=== PATIENT | female | born 1940 | race American Indian/Alaskan Native ===

== ENCOUNTER 2020-03-17 16:16 | Observation (INO) | payer MEDICARE, OTHER ==
--- NOTE | 2020-03-17 17:18 | XRay Report ---
CHEST 1 VIEW INDICATION: Chest Pain. COMPARISON: None FINDINGS: Support devices: None. Heart: Within normal limits. Lungs/Pleura: No acute air space or interstitial disease. Additional findings: None. IMPRESSION: No acute findings. Signer Name: Noel Fernandez Jr, MD Signed: 03/17/2020 5:14 PM Workstation Name: [id number]
--- NOTE | 2020-03-17 17:58 | Emergency Department Report ---
ED Chest Pain HPI - General Chief Complaint: Chest Pain Stated Complaint: CHEST PAIN PUI?: No Time Seen by Provider: 03/17/20 16:36 Source: patient, old records reviewed (No previous medical record for review) Mode of arrival: Stretcher Limitations: No Limitations - History of Present Illness Initial Comments: 79-year-old female presents from [facility] with complaints of chest pain that started around noon. Patient was walking on symptom onset and complains of associated shortness of breath and nausea without diaphoresis or vomiting. Patient took 2 nitroglycerin prior to arrival. Pain resolved about 12 PM. Patient describes pain as a sticking sensation but also states it is a heaviness radiating to her left neck and shoulder. As per medical record from [place] patient was medically cleared at [facility] and admitted to inpatient treatment at [place] on February 18 for acute psychosis. 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 Patient also tells me she has had 2 previous heart attacks 1 in 1977 and the next one in 1997 and thinks she might have cardiac stents but is unsure how many. She denies a history of PE/DVT. Patient cannot recall her last cardiac cath. She states she is supposed to get a stress test in November but it has been delayed due to COVID. 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 and are available for review at this time. As per medical record provided by [facility] facility patient does not have a known drug allergies but patient states that she is allergic to penicillin and has lip and tongue swelling when she takes her medication. This was added to her allergy list here at [facility] Severity scale (0 -10): 5 - Related Data Home Medications Medication Instructions Recorded Confirmed Last Taken Aspirin 81 mg PO DAILY 03/17/20 03/17/20 Unknown Lovastatin [Altoprev] 10 mg PO DAILY 03/17/20 03/17/20 Unknown Metoprolol [Lopressor TAB] 50 mg PO DAILY 03/17/20 03/17/20 Unknown Naproxen Sodium 220mg 220 mg PO PRN 03/17/20 03/17/20 Unknown Nitroglycerin [Nitrostat] 0.4 mg SL DAILY 03/17/20 03/17/20 Unknown Omeprazole 20 mg PO DAILY 03/17/20 03/17/20 Unknown amLODIPine 10 mg PO DAILY 03/17/20 03/17/20 Unknown lisinopriL 40 mg PO DAILY 03/17/20 03/17/20 Unknown Allergies Allergy/AdvReac Type Severity Reaction Status Date / Time Penicillins Allergy Swelling Verified 03/17/20 18:04 Heart Score - HEART Score History: Slightly suspicious EKG: Normal Age: > 65 Risk factors: > 3 risk factors or hx of atherosclerotic disease Troponin: < normal limit HEART Score: 4 ED Review of Systems ROS: Stated complaint: CHEST PAIN Other details as noted in HPI ED Past Medical Hx - Past Medical History Previous Medical History?: Yes Hx Hypertension: Yes Hx Heart Attack/AMI: Yes Hx Psychiatric Treatment: Yes (Bipolar disorder) Additional medical history: cataracts, glaucoma, thyroid tumor - Surgical History Past Surgical History?: Yes Hx Breast Surgery: Yes (tumors) Additional Surgical History: 1/2 of thyroid removed - Social History Smoking Status: Never Smoker Substance Use Type: None - Medications Home Medications: Home Medications Medication Instructions Recorded Confirmed Last Taken Type Aspirin 81 mg PO DAILY 03/17/20 03/17/20 Unknown History Lovastatin [Altoprev] 10 mg PO DAILY 03/17/20 03/17/20 Unknown History Metoprolol [Lopressor TAB] 50 mg PO DAILY 03/17/20 03/17/20 Unknown History Naproxen Sodium 220mg 220 mg PO PRN 03/17/20 03/17/20 Unknown History Nitroglycerin [Nitrostat] 0.4 mg SL DAILY 03/17/20 03/17/20 Unknown History Omeprazole 20 mg PO DAILY 03/17/20 03/17/20 Unknown History amLODIPine 10 mg PO DAILY 03/17/20 03/17/20 Unknown History lisinopriL 40 mg PO DAILY 03/17/20 03/17/20 Unknown History ED Physical Exam - General Limitations: No Limitations - Other Other exam information: General: No acute distress Head: Atraumatic Eyes: normal appearance ENT: Moist mucous membranes Neck: Normal appearance, no midline tenderness Chest: Clear to auscultation bilaterally, anterior sternal and left-sided chest wall tenderness CV: Regular rate and rhythm Abdomen: Soft, normal bowel sounds, nontender, nondistended, no rebound or guarding Back: Normal inspection Extremity: Bilateral lower extremity edema nonpitting, no leg asymmetry or calf tenderness Neuro: Alert O x 3, no facial asymmetry, speech clear, no gross motor sensory deficit Psych: Appropriate behavior Skin: No rash ED Course Vital Signs 03/17/20 03/17/20 03/17/20 16:31 17:00 17:31 Temperature 97.4 F L Pulse Rate 64 71 64 Respiratory 13 12 Rate Blood Pressure 133/53 133/53 109/56 Blood Pressure 139/100 [Left] O2 Sat by Pulse 100 99 98 Oximetry 03/17/20 03/17/20 03/17/20 18:00 18:31 18:46 Temperature Pulse Rate 67 64 68 Respiratory 11 L 13 18 Rate Blood Pressure 109/56 129/57 Blood Pressure 129/57 [Left] O2 Sat by Pulse 99 99 98 Oximetry 03/17/20 03/17/20 19:01 19:31 Temperature Pulse Rate 66 65 Respiratory 15 16 Rate Blood Pressure 111/57 135/45 Blood Pressure [Left] O2 Sat by Pulse 100 99 Oximetry CLARA score - Clara Score Age > 65: (1) Yes Aspirin use within the Past 7 Days: (1) Yes 3 or more CAD Risk Factors: (1) Yes 2 or more Angina events in past 24 hrs: (1) Yes Known CAD with more than 50% Stenosis: (1) Yes Elevated Cardiac Markers: (0) No ST Deviation Greater than 0.5mm: (0) No CLARA Score: 5 ED Medical Decision Making - Lab Data Result diagrams: 03/17/20 17:11 03/17/20 17:11 Lab Results 03/17/20 03/17/20 03/17/20 Range/Units 17:11 17:11 17:11 WBC 7.1 (4.5-11.0) K/mm3 RBC 4.21 (3.65-5.03) M/mm3 Hgb 10.2 (10.1-14.3) gm/dl Hct 31.1 (30.3-42.9) % MCV 74 L (79-97) fl MCH 24 L (28-32) pg MCHC 33 (30-34) % RDW 18.7 H (13.2-15.2) % Plt Count 194 (140-440) K/mm3 Lymph % (Auto) 29.1 (13.4-35.0) % Aiken % (Auto) 9.3 H (0.0-7.3) % Eos % (Auto) 4.6 H (0.0-4.3) % Baso % (Auto) 0.9 (0.0-1.8) % Lymph # 2.1 (1.2-5.4) K/mm3 Aiken # 0.7 (0.0-0.8) K/mm3 Eos # 0.3 (0.0-0.4) K/mm3 Baso # 0.1 (0.0-0.1) K/mm3 Seg Neutrophils % 56.1 (40.0-70.0) % Seg Neutrophils # 4.0 (1.8-7.7) K/mm3 PT 12.7 (12.2-14.9) Sec. INR 0.94 (0.87-1.13) APTT 38.2 H (24.2-36.6) Sec. D-Dimer 279.31 H (0-234) ng/mlDDU Sodium 140 (137-145) mmol/L Potassium 4.2 (3.6-5.0) mmol/L Chloride 101.9 (98-107) mmol/L Carbon Dioxide 28 (22-30) mmol/L Anion Gap 14 mmol/L BUN 27 H (7-17) mg/dL Creatinine 1.5 H (0.6-1.2) mg/dL Estimated GFR 41 ml/min BUN/Creatinine Ratio 18 % Glucose 88 (65-100) mg/dL Calcium 9.3 (8.4-10.2) mg/dL Total Bilirubin < 0.20 (0.1-1.2) mg/dL AST 23 (5-40) units/L ALT 13 (7-56) units/L Alkaline Phosphatase 102 (35-129) units/L Troponin T < 0.010 (0.00-0.029) ng/mL Total Protein 6.8 (6.3-8.2) g/dL Albumin 3.9 (3.9-5) g/dL Albumin/Globulin Ratio 1.3 % Blood Type Antibody Screen 03/17/20 03/17/20 Range/Units 17:19 19:51 WBC (4.5-11.0) K/mm3 RBC (3.65-5.03) M/mm3 Hgb (10.1-14.3) gm/dl Hct (30.3-42.9) % MCV (79-97) fl MCH (28-32) pg MCHC (30-34) % RDW (13.2-15.2) % Plt Count (140-440) K/mm3 Lymph % (Auto) (13.4-35.0) % Aiken % (Auto) (0.0-7.3) % Eos % (Auto) (0.0-4.3) % Baso % (Auto) (0.0-1.8) % Lymph # (1.2-5.4) K/mm3 Aiken # (0.0-0.8) K/mm3 Eos # (0.0-0.4) K/mm3 Baso # (0.0-0.1) K/mm3 Seg Neutrophils % (40.0-70.0) % Seg Neutrophils # (1.8-7.7) K/mm3 PT (12.2-14.9) Sec. INR (0.87-1.13) APTT (24.2-36.6) Sec. D-Dimer (0-234) ng/mlDDU Sodium (137-145) mmol/L Potassium (3.6-5.0) mmol/L Chloride (98-107) mmol/L Carbon Dioxide (22-30) mmol/L Anion Gap mmol/L BUN (7-17) mg/dL Creatinine (0.6-1.2) mg/dL Estimated GFR ml/min BUN/Creatinine Ratio % Glucose (65-100) mg/dL Calcium (8.4-10.2) mg/dL Total Bilirubin (0.1-1.2) mg/dL AST (5-40) units/L ALT (7-56) units/L Alkaline Phosphatase (35-129) units/L Troponin T < 0.010 (0.00-0.029) ng/mL Total Protein (6.3-8.2) g/dL Albumin (3.9-5) g/dL Albumin/Globulin Ratio % Blood Type O POSITIVE Antibody Screen Negative - EKG Data -: EKG Interpreted by Pr EKG shows normal: sinus rhythm, ST-T waves (no stemi) Rate: normal (65) - Radiology Data Radiology results: report reviewed CHEST 1 VIEW INDICATION: Chest Pain. COMPARISON: None FINDINGS: Support devices: None. Heart: Within normal limits. Lungs/Pleura: No acute air space or interstitial disease. Additional findings: None. IMPRESSION: No acute findings. VQ scan low probability for pulmonary embolus - Medical Decision Making Patient presents to the hospital left-sided chest pain and reported history of CAD with stent placement. EKG normal sinus without ischemic findings of patient's Nicotrol x2. Mildly elevated d-dimer noted with an low probability V/Q exam. Patient will be admitted to the hospital service for further work-up and evaluation. Critical Care Time: No Critical care attestation.: If time is entered above; I have spent that time in minutes in the direct care of this critically ill patient, excluding procedure time. ED Disposition Clinical Impression: Chest pain, History of coronary artery disease, Chronic renal insufficiency Disposition: OP ADMIT IP TO THIS HOSP Is pt being admited?: Yes Does the pt Need Aspirin: Yes Condition: Stable Time of Disposition: 21:16 (Dr. MAY)
[2020-03-17 18:02] LABS: Basophils # (Auto) 0.1 K/mm3 (0.0-0.1); Basophils % (Auto) 0.9 % (0.0-1.8); Eosinophils # (Auto) 0.3 K/mm3 (0.0-0.4); Eosinophils % (Auto) 4.6 % (0.0-4.3); Hematocrit 31.1 % (30.3-42.9); Hemoglobin 10.2 gm/dl (10.1-14.3); Lymphocytes # (Auto) 2.1 K/mm3 (1.2-5.4); Lymphocytes % (Auto) 29.1 % (13.4-35.0); Mean Corpuscular HGB Conc 33 % (30-34); Mean Corpuscular Volume 74 fl (79-97); Monocytes # (Auto) 0.7 K/mm3 (0.0-0.8); Monocytes % (Auto) 9.3 % (0.0-7.3); Platelet Count 194 K/mm3 (140-440); Red Blood Count 4.21 M/mm3 (3.65-5.03); Red Cell Distribution Width 18.7 % (13.2-15.2)
[2020-03-17 18:09] LABS: INR 0.94 (0.87-1.13)
[2020-03-17 18:10] LABS: Partial Thromboplastin Time 38.2 Sec. (24.2-36.6)
[2020-03-17 18:32] LABS: Alanine Aminotransferase 13 units/L (7-56); Albumin 3.9 g/dL (3.9-5); BUN/Creatinine Ratio 18; Blood Urea Nitrogen 27 mg/dL (7-17); Calcium 9.3 mg/dL (8.4-10.2); Hemolysis Index 11
--- NOTE | 2020-03-17 20:28 | Nuclear Medicine Report ---
NUCLEAR MEDICINE PERFUSION LUNG SCAN INDICATION / CLINICAL INFORMATION: cp, d-dimer elevation. TECHNIQUE: 5.10 mCi of Tc-99m MAA were given by IV. COMPARISON: Chest radiograph dated 03/17/20. FINDINGS: PERFUSION: No significant perfusion defects. ADDITIONAL FINDINGS: None. IMPRESSION: 1. Low probability for pulmonary embolism. Signer Name: Rigoberto Case MD Signed: 03/17/2020 8:24 PM Workstation Name: [id number]
[2020-03-17] MEDS ORDERED: ASPIRIN 325 MG TAB PO ONE (21:18)
[2020-03-17] MEDS ORDERED: MORPHINE 4 MG/1 ML INJ IV PRN (21:48)
[2020-03-17] MEDS ORDERED: ONDANSETRON 4 MG/2 ML INJ IV PRN (21:51)
[2020-03-17] MEDS ORDERED: ACETAMINOPHEN 325 MG TAB PO PRN (21:52)
[2020-03-17] MEDS ORDERED: NITROGLYCERIN 0.4 MG TAB SUBL SL PRN (21:55)
[2020-03-17] MEDS: HEPARIN 5,000 UNIT/1 ML VIAL SUB-Q SCH (22:12)
[2020-03-17] MEDS ORDERED: ASPIRIN 325 MG TAB ONE (22:12)
[2020-03-17] MEDS ORDERED: HEPARIN 5,000 UNIT/1 ML VIAL ONE (22:13)
[2020-03-18] MEDS ORDERED: NITROGLYCERIN 2% OINT 1 GM TP SCH (06:00)
[2020-03-18 06:36] LABS: Creatine Kinase MB 2.6 ng/mL (0.0-4.0)
[2020-03-18 06:38] LABS: BUN/Creatinine Ratio 18; Blood Urea Nitrogen 23 mg/dL (7-17); Calcium 9.2 mg/dL (8.4-10.2); Hemolysis Index 41
--- NOTE | 2020-03-18 07:54 | History and Physical Report ---
History of Present Illness Date of examination: 03/17/20 Date of admission: 03/17/20 21:18 Chief complaint: Chief complaint is chest pain History of present illness: History of presenting illness, patient is a 79-year-old female who was brought to the emergency room for [facility] because of sharp chest pain that is located in the precordial area, pain radiates to the left side of the neck and left arm and is associated with shortness of breath nausea but no vomiting and no diaphoresis. Pain is not affected by movement or breathing, pain is relieved with pain medication and or nitroglycerin. Past History Past Medical History: CAD, diabetes, GERD, heart failure, hypertension, renal failure Past Surgical History: Other (THYROID SURGERY, CARDIAC STENT, THYROID SURGERY, BREAST SURGERY) Social history: no significant social history Family history: CAD Medications and Allergies Allergies Allergy/AdvReac Type Severity Reaction Status Date / Time Penicillins Allergy Swelling Verified 03/17/20 18:04 Home Medications Medication Instructions Recorded Confirmed Last Taken Type Aspirin 81 mg PO DAILY 03/17/20 03/17/20 Unknown History Lovastatin [Altoprev] 10 mg PO DAILY 03/17/20 03/17/20 Unknown History Metoprolol [Lopressor TAB] 50 mg PO DAILY 03/17/20 03/17/20 Unknown History Naproxen Sodium 220mg 220 mg PO PRN 03/17/20 03/17/20 Unknown History Nitroglycerin [Nitrostat] 0.4 mg SL DAILY 03/17/20 03/17/20 Unknown History Omeprazole 20 mg PO DAILY 03/17/20 03/17/20 Unknown History amLODIPine 10 mg PO DAILY 03/17/20 03/17/20 Unknown History lisinopriL 40 mg PO DAILY 03/17/20 03/17/20 Unknown History Active Meds: Active Medications Acetaminophen (Tylenol) 650 mg PO Q4H PRN PRN Reason: Headache Aspirin (Aspirin) 325 mg PO QDAY [facility] Heparin Sodium (Porcine) (Heparin) 5,000 unit SUB-Q Q12HR [facility] Last Admin: 03/17/20 22:12 Dose: 5,000 unit Documented by: Morphine Sulfate (Morphine) 3 mg IV Q3H PRN PRN Reason: Pain , Severe (7-10) Nitroglycerin (Nitro-Bid 2%) 1 inch TP QIDNTG [facility]; Protocol Last Admin: 03/18/20 06:36 Dose: 1 inch Documented by: Nitroglycerin (Nitrostat) 0.4 mg SL .Q5MIN PRN PRN Reason: Chest Pain Ondansetron HCl (Zofran) 4 mg IV Q8H PRN PRN Reason: Nausea And Vomiting Review of Systems Constitutional: weakness, no weight loss, no fever, no chills, no sweats, no fatigue, no malaise Eyes: bilateral: other (NO BILATERAL EYE SYMPTOM) Ears, nose, mouth and throat: no ear pain, no ear discharge, no tinnitis, no decreased hearing, no nose pain, no nasal congestion, no nasal discharge, no sinus pressure, no dental pain, no mouth pain, no dysphagia, no hoarseness, no sore throat, no headache, no vertigo Breasts: deferred Cardiovascular: chest pain, shortness of breath, high blood pressure, no palpitations, no rapid/irregular heart beat, no syncope, no lightheadedness, no claudication Respiratory: shortness of breath, no cough, no congestion, no wheezing Gastrointestinal: nausea, no abdominal pain, no vomiting, no diarrhea, no constipation, no change in bowel habits, no hematemesis, no melena, no hematochezia, no loss of appetite, no early satiety, no heartburn, no indigestion Genitourinary Female: no pelvic pain, no flank pain, no incomplete emptying, no mood problems, no Menstruation: postmenopausal Rectal: no pain, no itching Musculoskeletal: no neck stiffness, no neck pain, no low back pain, no shooting leg pain, no leg numbness/tingling, no morning stiffness, no muscle weakness, no muscle cramps, no myalgias Integumentary: no rash, no pruritis, no redness, no sores, no wounds, no jaundice, no boils, no growths, no lesions Neurological: no paralysis, no weakness, no parathesias, no numbness, no tingling, no seizures, no syncope, no tremors, no vertigo, no headaches, no dede kale, no convulsions, no aphasia, no change in speech, no confusion, no double vision, no loss of vision Psychiatric: no anxiety, no insomnia, no hypersomnia, no change in appetite, no change in libido, no suicidal ideation, no confusion, no irritability Endocrine: no cold intolerance, no heat intolerance, no polyphagia, no polydipsia, no polyuria, no nocturia, no palpatations Hematologic/Lymphatic: no lymphadenopathy, no lymphedema Allergic/Immunologic: no urticaria, no allergic rhinitis, no persistent infections, no anaphylaxis Exam - Constitutional Vitals: Temp Pulse Resp BP Pulse Ox 98.6 F 78 18 145/63 96 03/18/20 04:03 03/18/20 06:36 03/18/20 04:03 03/18/20 06:36 03/18/20 04:03 General appearance: Present: mild distress - EENT Eyes: Present: EOM intact ENT: hearing intact, clear oral mucosa - Neck Neck: Present: supple, normal ROM. Absent: carotid bruits - Respiratory Respiratory effort: normal Respiratory: right: rales - Cardiovascular Rhythm: regular Heart Sounds: Present: S1 & S2. Absent: systolic murmur, diastolic murmur, click - Extremities Extremities: no ischemia, No edema Peripheral Pulses: within normal limits - Abdominal General gastrointestinal: Present: soft, non-tender, non-distended. Absent: tender, distended, rigid, hepatomegaly, splenomegaly, mass Female genitourinary: Present: deferred - Rectal Rectal Exam: deferred - Integumentary Integumentary: Present: clear, warm, dry. Absent: erythema, jaundice - Musculoskeletal Musculoskeletal: strength equal bilaterally - Psychiatric Psychiatric: appropriate mood/affect HEART Score - HEART Score EKG: Normal Age: > 65 Risk factors: > 3 risk factors or hx of atherosclerotic disease Troponin: Troponin T < 0.010 ng/mL (0.00-0.029) 03/18/20 05:46 Troponin: < normal limit - Critical Actions Critical Actions: 4-6 pts:12-16.6% risk of adverse cardiac event. Should be admitted Results - Labs CBC & Chem 7: 03/17/20 17:11 03/18/20 05:46 Labs: Laboratory Last Values WBC 7.1 K/mm3 (4.5-11.0) 03/17/20 17:11 RBC 4.21 M/mm3 (3.65-5.03) 03/17/20 17:11 Hgb 10.2 gm/dl (10.1-14.3) 03/17/20 17:11 Hct 31.1 % (30.3-42.9) 03/17/20 17:11 MCV 74 fl (79-97) L 03/17/20 17:11 MCH 24 pg (28-32) L 03/17/20 17:11 MCHC 33 % (30-34) 03/17/20 17:11 RDW 18.7 % (13.2-15.2) H 03/17/20 17:11 Plt Count 194 K/mm3 (140-440) 03/17/20 17:11 Lymph % (Auto) 29.1 % (13.4-35.0) 03/17/20 17:11 Holmes % (Auto) 9.3 % (0.0-7.3) H 03/17/20 17:11 Eos % (Auto) 4.6 % (0.0-4.3) H 03/17/20 17:11 Baso % (Auto) 0.9 % (0.0-1.8) 03/17/20 17:11 Lymph # 2.1 K/mm3 (1.2-5.4) 03/17/20 17:11 Holmes # 0.7 K/mm3 (0.0-0.8) 03/17/20 17:11 Eos # 0.3 K/mm3 (0.0-0.4) 03/17/20 17:11 Baso # 0.1 K/mm3 (0.0-0.1) 03/17/20 17:11 Seg Neutrophils % 56.1 % (40.0-70.0) 03/17/20 17:11 Seg Neutrophils # 4.0 K/mm3 (1.8-7.7) 03/17/20 17:11 PT 12.7 Sec. (12.2-14.9) 03/17/20 17:11 INR 0.94 (0.87-1.13) 03/17/20 17:11 APTT 38.2 Sec. (24.2-36.6) H 03/17/20 17:11 D-Dimer 279.31 ng/mlDDU (0-234) H 03/17/20 17:11 Sodium 141 mmol/L (137-145) 03/18/20 05:46 Potassium 4.2 mmol/L (3.6-5.0) 03/18/20 05:46 Chloride 106.1 mmol/L (98-107) 03/18/20 05:46 Carbon Dioxide 27 mmol/L (22-30) 03/18/20 05:46 Anion Gap 12 mmol/L 03/18/20 05:46 BUN 23 mg/dL (7-17) H 03/18/20 05:46 Creatinine 1.3 mg/dL (0.6-1.2) H 03/18/20 05:46 Estimated GFR 48 ml/min 03/18/20 05:46 BUN/Creatinine Ratio 18 % 03/18/20 05:46 Glucose 90 mg/dL (65-100) 03/18/20 05:46 Calcium 9.2 mg/dL (8.4-10.2) 03/18/20 05:46 Total Bilirubin < 0.20 mg/dL (0.1-1.2) 03/17/20 17:11 AST 23 units/L (5-40) 03/17/20 17:11 ALT 13 units/L (7-56) 03/17/20 17:11 Alkaline Phosphatase 102 units/L (35-129) 03/17/20 17:11 Total Creatine Kinase 124 units/L (30-135) 03/18/20 05:46 CK-MB (CK-2) 2.6 ng/mL (0.0-4.0) 03/18/20 05:46 CK-MB (CK-2) Rel Index 2.0 (0-4) 03/18/20 05:46 Troponin T < 0.010 ng/mL (0.00-0.029) 03/18/20 05:46 Total Protein 6.8 g/dL (6.3-8.2) 03/17/20 17:11 Albumin 3.9 g/dL (3.9-5) 03/17/20 17:11 Albumin/Globulin Ratio 1.3 % 03/17/20 17:11 Blood Type O POSITIVE 03/17/20 17:19 Antibody Screen Negative 03/17/20 17:19 Dodson/IV: Voiding Method Toilet IV Catheter Type [Right INT / Saline Lock Antecubital] Assessment and Plan - Patient Problems (1) Chest pain Current Visit: Yes Status: Acute Plan to address problem: 1. TELE OBSERVATION 2. SERIAL CARDIAC ENZYME 3. NITROPASTE 4. I.V MORPHINE FOR PAIN 5. I.V ZOFRAN FOR NAUSEA AND VOMITING 6. NPO WITH LEXISCAN STRESS TEST 7. OXYGEN BY NASAL CANNULA (2) Chronic renal insufficiency Current Visit: Yes Status: Acute Plan to address problem: 1. I.V NORMAL SALINE 2.NEPHROLOGY CONSULT
--- NOTE | 2020-03-18 09:15 | Progress Note ---
Assessment and Plan Assessment and plan: Patient is a 79-year-old female who was brought to the emergency room for [facility] because of sharp chest pain that is located in the precordial area, pain radiates to the left side of the neck and left arm and is associated with shortness of breath nausea but no vomiting and no di aphoresis. Pain is not affected by movement or breathing, pain is relieved with pain medication and or nitroglycerin. 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 History Interval history: Patient seen and examined no new distress at this time. Reports pressure-like sensation intermittent on chest wall. Hospitalist Physical - Physical exam Narrative exam: VITAL SIGNS: Reviewed. GENERAL: The patient appears normally developed, Vital signs as documented. HEAD: No signs of head trauma. EYES: Pupils are equal. Extraocular motions intact. EARS: Hearing grossly intact. MOUTH: Oropharynx is normal. NECK: No adenopathy, no JVD. CHEST: Chest with clear breath sounds bilaterally. No wheezes, rales, or rhonchi. CARDIAC: Regular rate and rhythm. S1 and S2, without murmurs, gallops, or rubs. VASCULAR: No Edema. Peripheral pulses normal and equal in all extremities. ABDOMEN: Soft, non tender and non distended. No rebound or guarding, and no masses palpated. Bowel Sounds normal. MUSCULOSKELETAL: Good range of motion of all major joints. Extremities without clubbing, cyanosis or edema. NEUROLOGIC EXAM: Alert and oriented x 3 No focal sensory or strength deficits. Speech normal. Follows commands. PSYCHIATRIC: Mood normal. SKIN: detail exam as documented in skin assessment - Constitutional Vitals: Temp Pulse Resp BP Pulse Ox 98.6 F 78 18 145/63 96 03/18/20 04:03 03/18/20 08:09 03/18/20 04:03 03/18/20 06:36 03/18/20 09:07 General appearance: Present: mild distress HEART Score - HEART Score EKG: Normal Age: > 65 Risk factors: > 3 risk factors or hx of atherosclerotic disease Troponin: Troponin T < 0.010 ng/mL (0.00-0.029) 03/18/20 05:46 Troponin: < normal limit - Critical Actions Critical Actions: 4-6 pts:12-16.6% risk of adverse cardiac event. Should be admitted Results - Labs CBC & Chem 7: 03/17/20 17:11 03/18/20 05:46 Labs: Laboratory Last Values WBC 7.1 K/mm3 (4.5-11.0) 03/17/20 17:11 RBC 4.21 M/mm3 (3.65-5.03) 03/17/20 17:11 Hgb 10.2 gm/dl (10.1-14.3) 03/17/20 17:11 Hct 31.1 % (30.3-42.9) 03/17/20 17:11 MCV 74 fl (79-97) L 03/17/20 17:11 MCH 24 pg (28-32) L 03/17/20 17:11 MCHC 33 % (30-34) 03/17/20 17:11 RDW 18.7 % (13.2-15.2) H 03/17/20 17:11 Plt Count 194 K/mm3 (140-440) 03/17/20 17:11 Lymph % (Auto) 29.1 % (13.4-35.0) 03/17/20 17:11 Marshall % (Auto) 9.3 % (0.0-7.3) H 03/17/20 17:11 Eos % (Auto) 4.6 % (0.0-4.3) H 03/17/20 17:11 Baso % (Auto) 0.9 % (0.0-1.8) 03/17/20 17:11 Lymph # 2.1 K/mm3 (1.2-5.4) 03/17/20 17:11 Marshall # 0.7 K/mm3 (0.0-0.8) 03/17/20 17:11 Eos # 0.3 K/mm3 (0.0-0.4) 03/17/20 17:11 Baso # 0.1 K/mm3 (0.0-0.1) 03/17/20 17:11 Seg Neutrophils % 56.1 % (40.0-70.0) 03/17/20 17:11 Seg Neutrophils # 4.0 K/mm3 (1.8-7.7) 03/17/20 17:11 PT 12.7 Sec. (12.2-14.9) 03/17/20 17:11 INR 0.94 (0.87-1.13) 03/17/20 17:11 APTT 38.2 Sec. (24.2-36.6) H 03/17/20 17:11 D-Dimer 279.31 ng/mlDDU (0-234) H 03/17/20 17:11 Sodium 141 mmol/L (137-145) 03/18/20 05:46 Potassium 4.2 mmol/L (3.6-5.0) 03/18/20 05:46 Chloride 106.1 mmol/L (98-107) 03/18/20 05:46 Carbon Dioxide 27 mmol/L (22-30) 03/18/20 05:46 Anion Gap 12 mmol/L 03/18/20 05:46 BUN 23 mg/dL (7-17) H 03/18/20 05:46 Creatinine 1.3 mg/dL (0.6-1.2) H 03/18/20 05:46 Estimated GFR 48 ml/min 03/18/20 05:46 BUN/Creatinine Ratio 18 % 03/18/20 05:46 Glucose 90 mg/dL (65-100) 03/18/20 05:46 Calcium 9.2 mg/dL (8.4-10.2) 03/18/20 05:46 Total Bilirubin < 0.20 mg/dL (0.1-1.2) 03/17/20 17:11 AST 23 units/L (5-40) 03/17/20 17:11 ALT 13 units/L (7-56) 03/17/20 17:11 Alkaline Phosphatase 102 units/L (35-129) 03/17/20 17:11 Total Creatine Kinase 124 units/L (30-135) 03/18/20 05:46 CK-MB (CK-2) 2.6 ng/mL (0.0-4.0) 03/18/20 05:46 CK-MB (CK-2) Rel Index 2.0 (0-4) 03/18/20 05:46 Troponin T < 0.010 ng/mL (0.00-0.029) 03/18/20 05:46 Total Protein 6.8 g/dL (6.3-8.2) 03/17/20 17:11 Albumin 3.9 g/dL (3.9-5) 03/17/20 17:11 Albumin/Globulin Ratio 1.3 % 03/17/20 17:11 Blood Type O POSITIVE 03/17/20 17:19 Antibody Screen Negative 03/17/20 17:19 Dodson/IV: Voiding Method Toilet IV Catheter Type [Right INT / Saline Lock Antecubital] Active Medications - Current Medications Current Medications: Generic Name Dose Route Start Last Admin Trade Name Freq PRN Reason Stop Dose Admin Acetaminophen 650 mg 03/17/20 21:52 Tylenol PO Q4H PRN Headache Aspirin 325 mg 03/18/20 10:00 Aspirin PO QDAY [facility] Heparin Sodium (Porcine) 5,000 unit 03/17/20 22:00 03/17/20 22:12 Heparin SUB-Q 5,000 unit Q12HR [facility] Administration Morphine Sulfate 3 mg 03/17/20 21:48 Morphine IV Q3H PRN Pain , Severe (7-10) Nitroglycerin 1 inch 03/18/20 06:00 03/18/20 06:36 Nitro-Bid 2% TP 1 inch QIDNTG [facility] Administration Protocol Nitroglycerin 0.4 mg 03/17/20 21:55 Nitrostat SL .Q5MIN PRN Chest Pain Ondansetron HCl 4 mg 03/17/20 21:51 Zofran IV Q8H PRN Nausea And Vomiting
--- NOTE | 2020-03-18 09:30 | Consultation ---
History of Present Illness - Reason for Consult Consult date: 03/18/20 acute renal failure, chronic renal failure - History of Present Illness Patient is a 79-year-old woman who was brought to the emergency room from [facility] because of sharp chest pain. At time of cons ult, patient notes that she is feeling well and is not having chest pain, dyspnea, edema. In regards to her renal history, she notes that she used to see "a kidney doctor" in [place] for a "kidney tumor". She does not have any knowledge of chronic kidney disease specifically however. Shes notes normal urination with no burning or frequency, no obed hematuria. No changes in appetite. Is noted to have NSAIDs prn. Past History Past Medical History: CAD, diabetes, GERD, heart failure, hypertension, renal failure Past Surgical History: Other (THYROID SURGERY, CARDIAC STENT, THYROID SURGERY, BREAST SURGERY) Social history: no significant social history Family history: CAD Medications and Allergies Allergies Allergy/AdvReac Type Severity Reaction Status Date / Time Penicillins Allergy Swelling Verified 03/17/20 18:04 Home Medications Medication Instructions Recorded Confirmed Last Taken Type Aspirin 81 mg PO DAILY 03/17/20 03/17/20 Unknown History Lovastatin [Altoprev] 10 mg PO DAILY 03/17/20 03/17/20 Unknown History Metoprolol [Lopressor TAB] 50 mg PO DAILY 03/17/20 03/17/20 Unknown History Naproxen Sodium 220mg 220 mg PO PRN 03/17/20 03/17/20 Unknown History Nitroglycerin [Nitrostat] 0.4 mg SL DAILY 03/17/20 03/17/20 Unknown History Omeprazole 20 mg PO DAILY 03/17/20 03/17/20 Unknown History amLODIPine 10 mg PO DAILY 03/17/20 03/17/20 Unknown History lisinopriL 40 mg PO DAILY 03/17/20 03/17/20 Unknown History Active Meds: Active Medications Acetaminophen (Tylenol) 650 mg PO Q4H PRN PRN Reason: Headache Amlodipine Besylate (Amlodipine) 10 mg PO DAILY [facility] Aspirin (Aspirin) 325 mg PO QDAY [facility] Atorvastatin Calcium (Atorvastatin) 5 mg PO QHS [facility] Heparin Sodium (Porcine) (Heparin) 5,000 unit SUB-Q Q12HR [facility] Last Admin: 03/17/20 22:12 Dose: 5,000 unit Documented by: Metoprolol Tartrate (Metoprolol) 50 mg PO DAILY [facility] Morphine Sulfate (Morphine) 3 mg IV Q3H PRN PRN Reason: Pain , Severe (7-10) Nitroglycerin (Nitrostat) 0.4 mg SL .Q5MIN PRN PRN Reason: Chest Pain Ondansetron HCl (Zofran) 4 mg IV Q8H PRN PRN Reason: Nausea And Vomiting Pantoprazole Sodium (Protonix) 20 mg PO QDAY [facility] Review of Systems Constitutional: no weight loss, no fever, no chills, no fatigue, no weakness Ears, nose, mouth and throat: no decreased hearing Cardiovascular: chest pain, no palpitations, no edema, no syncope, no lightheadedness, no shortness of breath Respiratory: no cough, no dyspnea on exertion Gastrointestinal: nausea, no abdominal pain, no vomiting, no diarrhea Genitourinary Female: no dysuria, no urgency, no hematuria Musculoskeletal: no neck stiffness, no low back pain Integumentary: no rash Neurological: no weakness, no numbness, no headaches Psychiatric: no anxiety Exam - Vital Signs Vital signs: Vital Signs Pulse BP Pulse Ox 64 133/53 100 03/17/20 16:31 03/17/20 16:31 03/17/20 16:31 - Physical Exam Narrative exam: General appearance: no distress, appears stated age Eyes: Present: EOM intact ENT: hearing intact, clear oral mucosa Neck: Present: supple Respiratory effort: normal CV: regular rate Extremities: no ischemia, No edema Peripheral Pulses: within normal limits General gastrointestinal: Present: soft, non-tender, non-distended. Absent: tender Integumentary: Present: clear, warm, dry Musculoskeletal: strength equal bilaterally Psychiatric: appropriate mood/affect Results - Lab Results 03/17/20 17:11 03/18/20 05:46 Most recent lab results Calcium 9.2 mg/dL (8.4-10.2) 03/18/20 05:46 Assessment and Plan This is a 79-year-old female who presents with chest pain. # Acute Kidney Injury: unclear baseline. Creatinine improved from 1.5->1.3, may have some pre-renal injury. Likely has CKD from history, age-related changes. - IVF prn as tolerated, po intake once able - if contrast is needed, would recommend pre and post hydration to mitigate contrast injury - renal ultrasound given history of kidney tumor - send urinalysis, UP/C - monitor urine output - defer serological workup given mild injury - would avoid PPI if able given AIN risk - avoid nephrotoxins - ok to continue DAVINA-I # HTN: BP reasonable, continue current regimen # Chest Pain, History of CAD: workup per cardiology, NM stress today pending # Schizophrenia, Bipolar Disorder
[2020-03-18] MEDS ORDERED: LOVASTATIN 10 MG PO SCH (10:00)
[2020-03-18] MEDS: HEPARIN 5,000 UNIT/1 ML VIAL SUB-Q SCH ×2 (10:25→22:25)
[2020-03-18] MEDS: METOPROLOL TARTRATE 50 MG TAB PO SCH (10:25)
[2020-03-18] MEDS: amLODIPine 10 MG TAB PO SCH (10:25)
[2020-03-18] MEDS: ASPIRIN 325 MG TAB PO SCH (10:25)
[2020-03-18] MEDS: PANTOPRAZOLE 20 MG TAB PO SCH (10:25)
--- NOTE | 2020-03-18 14:53 | Ultrasound Report ---
ULTRASOUND RENAL INDICATION / CLINICAL INFORMATION: MACI. COMPARISON: None available. FINDINGS: RIGHT KIDNEY: Length = 12.6 cm. [normal > 9 cm] - Parenchymal Thickness = 1.0 cm. [normal > 1.5 cm] - Echogenicity: Increased - Hydronephrosis: None. - Cyst or mass: There are multiple cysts in the mid to inferior left kidney ranging from 1 cm to 3 cm in diameter. - Stones: None seen. LEFT KIDNEY: Length = 9.1 cm. [normal > 9 cm] - Parenchymal Thickness = 1.7 cm. [normal > 1.5 cm] - Echogenicity: Increased - Hydronephrosis: None. - Cyst or mass: No significant abnormality. - Stones: None seen. URINARY BLADDER: No significant abnormality. FREE FLUID: None. ADDITIONAL FINDINGS: None. IMPRESSION: Slightly echogenic kidneys consistent with nonspecific renal parenchymal disease. Multiple right juanita al cysts. Signer Name: Noel Fernandez Jr, MD Signed: 03/18/2020 2:49 PM Workstation Name: [id number]
[2020-03-19] MEDS ORDERED: REGADENOSON 0.4 MG/5 ML INJ IV ONE ×2 (07:52→07:58)
--- NOTE | 2020-03-19 10:13 | Treadmill Report ---
NUCLEAR PERFUSION SCAN REFERRING PHYSICIAN: Hospitalist service. PROTOCOL: The patient was brought to the stress lab in postoperative state, given 10 mCi of technetium 99m at rest. The patient underwent rest imaging. The patient underwent Lexiscan stress test. At peak stress, patient was given 26 mCi critical power install technician 99m. Shortly thereafter, the patient underwent stress imaging. Raw imaging reveals mild GI artifact, no significant motion artifact. SPECT imaging examined carefully in horizontal long axis, vertical long axis, short axis views. There is normal homogenous uptake of radioisotope in all reported segments. No evidence of significant fixed or reversible perfusion defect suggestive of prior infarction or ischemia. Gated wall motion reveals normal systolic thickening, calculated ejection fraction 71%, no TID. CONCLUSIONS: 1. Normal myocardial perfusion scan without evidence of active ischemia or prior infarction. 2. Normal left ventricular systolic performance without evidence of transient ischemic dilatation or stress-induced segmental wall motion abnormalities. JOB# [id number] SANDRA/ANNALEE
[2020-03-19] MEDS: PANTOPRAZOLE 20 MG TAB PO SCH (10:35)
[2020-03-19] MEDS: METOPROLOL TARTRATE 50 MG TAB PO SCH (10:35)
[2020-03-19] MEDS: ASPIRIN 325 MG TAB PO SCH (10:35)
[2020-03-19] MEDS: amLODIPine 10 MG TAB PO SCH (10:35)
[2020-03-19] MEDS: HEPARIN 5,000 UNIT/1 ML VIAL SUB-Q SCH (10:36)
[2020-03-19 11:06] VITALS: BP 168/65
--- NOTE | 2020-03-19 11:36 | Consultation ---
History of Present Illness - Reason for Consult Consult date: 03/19/20 Reason for consult: MHE Requesting physician: EUGENE CALERO - Chief Complaint Chief complaint: Psychosis - History of Present Psychiatric Illness Per ED Provider: 79-year-old female presents from [facility] with complaints of chest pain that started around noon. Patient was walking on symptom onset and complains of associated shortness of breath and nausea without diaphoresis or vomiting. Patient took 2 nitroglycerin prior to arrival. Pain resolved about 12 PM. Patient describes pain as a sticking sensation but also states it is a heaviness radiating to her left neck and shoulder. As per me dical record from [place] patient was medically cleared at [facility] and admitted to inpatient treatment at [place] on February 18 for acute psychosis. 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 Patient also tells me she has had 2 previous heart attacks 1 in 1977 and the next one in 1997 and thinks she might have cardiac stents but is unsure how many. She denies a history of PE/DVT. Patient cannot recall her last cardiac cath. She states she is supposed to get a stress test in November but it has been delayed due to COVID. 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 PSYCH HPI Patient is a currently retired 79-year-old -[place] female with past psychiatric history of depression back in 1990 now resolved and has past medical history of hypertension, diabetes, and dyslipidemia with unspecified lung malignancy was recommended for medical evaluation due to being transferred from [place] [facility] for Paranoia. Patient says she is not having any mental health disturbance and does not like the fact that she was committed to help psychiatric facility and placed on psychedelic drugs against her wishes, blames that on poor communication and understanding. Reports she had presented to the facility for medical data compl aint and that particular day that she was having symptoms out had drank, then a drunk at home and was threatening to hurt her and also hurt other family members, and when she presented these complaints to the medical record technician they informed her she was just being paranoid and is committed to a psych facility,. She reports she is having medical issues she knows where to go just as she did b ack in 1990 when she was having depression PAST PSYCHIATRIC HISTORY Diagnoses: Depression now resolved Suicide attempts or Self-harm behavior: None reported Prior psychiatric hospitalizations: Yes recent Substance Abuse history: none reported Previous psychiatric medications tried: yes Outpatient treatment: none reported PAST MEDICAL HISTORY: HTN, DM, Lung maligancy Family Psychiatric History: None reported or documented SOCIAL HISTORY Marital Status: Living Arrangements: with Employment Status: Retired Access to guns/weapons: none reported Education: High school History of Abuse: none reported Legal History: none REVIEW OF SYSTEMS Constitutional: Negative for weight loss ENT: Negative for stridor Respiratory: Negative for cough or hemoptysis All other systems reviewed and are negative MENTAL STATUS EXAMINATION General Appearance and Behavior: Age appropriate, good hygiene, wearing appropriate clothes, lying in bed, good eye contact, cooperative polite with questioning. Cooperation: Participating/engaged Psychomotor Behavior: unremarkable and within normal limits Mood: Good Affect and affective range: good Thought Process: Fluent/Logical, Thought Content: Within reality Speech: Normal volume, Regular rate and rhythm Intellectual Functioning: Average Suicidal Ideation: Denies SI Homicidal Ideation: Denies HI Impulse Control: Unimpaired Insight and Judgment: Normal insight and judgment Memory: Normal Attention: Normal Orientation: Alert, oriented RECOMMENDATIONS MEDICATIONS: Risks, benefits and alternatives of medications discussed with the patient, questions answered and consent obtained from patient. PSYCHOTHERAPY: Supportive psychotherapy provided MEDICAL: Per primary team DELIRIUM PRECAUTIONS: Please re-orient patient frequently, keep lights on during the day, and minimize benzodiazepines and opiates as these medications could worsen patient's confusion. HIGH SCHOOL COORDINATOR: Per medical team DISPOSITION: Per primary team; no indication for acute inpatient psychiatric hospitalization at this time LEGAL STATUS: Voluntary FOLLOW-UP: Will sign off Thank you for the consult. Please contact with any questions and/or concerns. Medications and Allergies Allergies Allergy/AdvReac Type Severity Reaction Status Date / Time Penicillins Allergy Swelling Verified 03/17/20 18:04 Home Medications Medication Instructions Recorded Confirmed Last Taken Type Aspirin 81 mg PO DAILY 03/17/20 03/17/20 Unknown History Lovastatin [Altoprev] 10 mg PO DAILY 03/17/20 03/17/20 Unknown History Metoprolol [Lopressor TAB] 50 mg PO DAILY 03/17/20 03/17/20 Unknown History Naproxen Sodium 220mg 220 mg PO PRN 03/17/20 03/17/20 Unknown History Nitroglycerin [Nitrostat] 0.4 mg SL DAILY 03/17/20 03/17/20 Unknown History Omeprazole 20 mg PO DAILY 03/17/20 03/17/20 Unknown History amLODIPine 10 mg PO DAILY 03/17/20 03/17/20 Unknown History lisinopriL 40 mg PO DAILY 03/17/20 03/17/20 Unknown History Active Meds: Active Medications Acetaminophen (Tylenol) 650 mg PO Q4H PRN PRN Reason: Headache Amlodipine Besylate (Amlodipine) 10 mg PO DAILY [facility] Last Admin: 03/19/20 10:35 Dose: 10 mg Documented by: Aspirin (Aspirin) 325 mg PO QDAY [facility] Last Admin: 03/19/20 10:35 Dose: 325 mg Documented by: Atorvastatin Calcium (Atorvastatin) 5 mg PO QHS [facility] Last Admin: 03/18/20 22:25 Dose: 5 mg Documented by: Heparin Sodium (Porcine) (Heparin) 5,000 unit SUB-Q Q12HR [facility] Last Admin: 03/19/20 10:36 Dose: 5,000 unit Documented by: Metoprolol Tartrate (Metoprolol) 50 mg PO DAILY [facility] Last Admin: 03/19/20 10:35 Dose: 50 mg Documented by: Morphine Sulfate (Morphine) 3 mg IV Q3H PRN PRN Reason: Pain , Severe (7-10) Nitroglycerin (Nitrostat) 0.4 mg SL .Q5MIN PRN PRN Reason: Chest Pain Ondansetron HCl (Zofran) 4 mg IV Q8H PRN PRN Reason: Nausea And Vomiting Pantoprazole Sodium (Protonix) 20 mg PO QDAY [facility] Last Admin: 03/19/20 10:35 Dose: 20 mg Documented by: Mental Status Exam - Vital signs Last Vital Signs Temp 97.8 F 03/19/20 11:05 Pulse 63 03/19/20 10:00 Resp 18 03/19/20 11:05 BP 168/65 03/19/20 11:05 Pulse Ox 100 03/19/20 07:37 Results Result Diagrams: 03/17/20 17:11 03/18/20 05:46 All other labs normal.
--- NOTE | 2020-03-19 12:43 | Discharge Summary ---
Providers - Providers Date of Admission: 03/17/20 21:18 Date of discharge: 03/19/20 Attending physician: ALLEY HAGEN 03/17/20 23:40 Consult to Dietitian/Nutrition [CONS] Routine Physician Instructions: Reason For Exam: Reason for Consult: Poor oral intake 03/18/20 06:00 Consult to Physician [CONS] Routine Comment: Consulting Provider: DANIEL PLUMMER Physician Instructions: Reason For Exam: RENAL INSUFFICIENCY 03/18/20 14:49 Consult to Mental Health [CONS] Routine Reason For Exam: PYSCHOSIS Primary care physician: NICKOLAS STEPHENS Hospitalization Reason for admission: Chest pain Condition: Good Pertinent studies: Lexiscan stress test Hospital course: 79-year-old -Ug[place] with history of schizophrenia/bipolar depressed transferred from [facility] the patient was complaining of chest pain. ME was ruled out with serial cardiac isoenzymes and this morning patient had a stress test which was normal. Patient denies any chest pain or shortness of breath and she is medically stable for discharge back to [facility] Disposition: [id number]/[id number] PSY HOSP/PSY UNIT Time spent for discharge: 34 min - Discharge Diagnoses (1) Chest pain Status: Acute Comment: Resolved (2) Chronic renal insufficiency Status: Acute Qualifiers: Chronic kidney disease stage: stage 2 (mild) Qualified Code(s): N18.2 - Chronic kidney disease, stage 2 (mild) Comment: Serum creatinine is at base baseline (3) History of coronary artery disease Status: Chronic Comment: Continue home medications Core Measure Documentation - Palliative Care Palliative Care/ Comfort Measures: Not Applicable - Core Measures Any of the following diagnoses?: none Exam - Constitutional Vitals: Temp Pulse Resp BP Pulse Ox 97.8 F 63 18 168/65 100 03/19/20 11:05 03/19/20 10:00 03/19/20 11:05 03/19/20 11:05 03/19/20 07:37 General appearance: Present: no acute distress - EENT Eyes: Present: PERRL, EOM intact ENT: hearing intact, clear oral mucosa - Neck Neck: Present: supple, normal ROM - Respiratory Respiratory effort: normal Respiratory: bilateral: CTA - Cardiovascular Rhythm: regular Heart Sounds: Present: S1 & S2 - Extremities Extremities: No edema - Abdominal General gastrointestinal: Present: soft, non-tender Female genitourinary: Present: deferred - Rectal Rectal Exam: deferred - Integumentary Integumentary: Present: clear - Musculoskeletal Musculoskeletal: strength equal bilaterally - Psychiatric Psychiatric: appropriate mood/affect Plan Activity: no restrictions Weight Bearing Status: Full Weight Bearing Diet: regular, low fat, low cholesterol Follow up with: NICKOLAS TSEPHENS MD [Primary Care Provider] - 7 Days
--- NOTE | 2020-03-19 13:45 | Progress Note ---
Assessment and Plan This is a 79-year-old female who presents with chest pain. # Acute Kidney Injury: unclear baseline. Creatinine improved from 1.5->1.3, no labs for review today, may have some pre-renal injury. Likely has CKD from history, age-related changes. Renal ultrasound reviewed, no masses noted, likely with cystic changes with age. Suggestive of CKD. - IVF prn as tolerated, po intake once able - if contrast is needed, would recommend pre and post hydration to mitigate contrast injury - urinalysis, UP/C pending - monitor urine output - defer serological workup given mild injury - would avoid PPI if able given AIN risk - avoid nephrotoxins - ok to continue DAVINA-I - will arrange outpatient CKD follow up on discharge # HTN: BP reasonable, continue current regimen # Chest Pain, History of CAD: workup per cardiology, NM stress yesterday # Schizophrenia, Bipolar Disorder Subjective Date of service: 03/19/20 Interval history: No acute changes noted, resting comfortably this AM Objective - Exam Narrative Exam: General appearance: no distress, appears stated age Eyes: Present: EOM intact ENT: hearing intact, clear oral mucosa Neck: Present: supple Respiratory effort: normal CV: regular rate Extremities: no ischemia, No edema Peripheral Pulses: within normal limits General gastrointestinal: Present: soft, non-tender, non-distended. Absent: tender Integumentary: Present: clear, warm, dry Musculoskeletal: strength equal bilaterally Psychiatric: appropriate mood/affect - Vital Signs Vital signs: Vital Signs - 12hr 03/19/20 03/19/20 03/19/20 05:14 07:37 08:44 Temperature 98.0 F 98.0 F Pulse Rate 71 70 Respiratory 18 18 Rate Blood Pressure 153/64 146/63 157/60 O2 Sat by Pulse 99 100 Oximetry 03/19/20 03/19/20 03/19/20 08:56 08:57 08:59 Temperature Pulse Rate Respiratory Rate Blood Pressure 138/60 134/59 140/60 O2 Sat by Pulse Oximetry 03/19/20 03/19/20 03/19/20 09:01 09:03 10:00 Temperature Pulse Rate 63 Respiratory Rate Blood Pressure 136/54 128/53 O2 Sat by Pulse Oximetry 03/19/20 11:05 Temperature 97.8 F Pulse Rate Respiratory 18 Rate Blood Pressure 168/65 O2 Sat by Pulse Oximetry - Lab 03/17/20 17:11 03/18/20 05:46 Most recent lab results Calcium 9.2 mg/dL (8.4-10.2) 03/18/20 05:46 Medications & Allergies - Medications Allergies/Adverse Reactions: Allergies Penicillins Allergy (Verified 03/17/20 18:04) Swelling Home Medications: Home Medications Medication Instructions Recorded Confirmed Last Taken Type Aspirin 81 mg PO DAILY 03/17/20 03/17/20 Unknown History Metoprolol [Lopressor TAB] 50 mg PO DAILY 03/17/20 03/17/20 Unknown History Nitroglycerin [Nitrostat] 0.4 mg SL DAILY 03/17/20 03/17/20 Unknown History Omeprazole 20 mg PO DAILY 03/17/20 03/17/20 Unknown History amLODIPine 10 mg PO DAILY 03/17/20 03/17/20 Unknown History AtorvaSTATin 5 mg PO QHS tablet 03/19/20 Unknown Rx Active Medications: Generic Name Dose Route Start Last Admin Trade Name Freq PRN Reason Stop Dose Admin Acetaminophen 650 mg 03/17/20 21:52 Tylenol PO Q4H PRN Headache Amlodipine Besylate 10 mg 03/18/20 10:00 03/19/20 10:35 Amlodipine PO 10 mg DAILY MARYANN Administration Aspirin 325 mg 03/18/20 10:00 03/19/20 10:35 Aspirin PO 325 mg QDAY MARYANN Administration Atorvastatin Calcium 5 mg 03/18/20 22:00 03/18/20 22:25 Atorvastatin PO 5 mg QHS MARYANN Administration Heparin Sodium (Porcine) 5,000 unit 03/17/20 22:00 03/19/20 10:36 Heparin SUB-Q 5,000 unit Q12HR MARYANN Administration Metoprolol Tartrate 50 mg 03/18/20 10:00 03/19/20 10:35 Metoprolol PO 50 mg DAILY MARYANN Administration Morphine Sulfate 3 mg 03/17/20 21:48 Morphine IV Q3H PRN Pain , Severe (7-10) Nitroglycerin 0.4 mg 03/17/20 21:55 Nitrostat SL .Q5MIN PRN Chest Pain Ondansetron HCl 4 mg 03/17/20 21:51 Zofran IV Q8H PRN Nausea And Vomiting Pantoprazole Sodium 20 mg 03/18/20 10:00 03/19/20 10:35 Protonix PO 20 mg QDAY MARYANN Administration
== END 2020-03-19 17:20 ==
LOC: ED 16:16 → 4A 21:18
PROVIDERS: ADMIT Internal Medicine; ATTEND Internal Medicine
DX: R07.89 Other chest pain (principal); I13.0 Hypertensive heart and chronic kidney disease with heart failure and stage 1 through stage 4 chronic kidney disease, or unspecified chronic kidney disease; E11.22 Type 2 diabetes mellitus with diabetic chronic kidney disease; N18.2 Chronic kidney disease, stage 2 (mild); I50.9 Heart failure, unspecified; N17.0 Acute kidney failure with tubular necrosis; I25.10 Atherosclerotic heart disease of native coronary artery without angina pectoris; K21.9 Gastro-esophageal reflux disease without esophagitis; F20.9 Schizophrenia, unspecified; F31.9 Bipolar disorder, unspecified; I25.2 Old myocardial infarction; F29 Unspecified psychosis not due to a substance or known physiological condition; D64.9 Anemia, unspecified; Z85.118 Personal history of other malignant neoplasm of bronchus and lung; Z95.5 Presence of coronary angioplasty implant and graft; Z79.82 Long term (current) use of aspirin; Z79.899 Other long term (current) drug therapy; Z88.0 Allergy status to penicillin
CPT/HCPCS: 36415; 71045; 76770; 78452; 78580; 80048; 80053; 82550; 82553; 84484; 85025; 85379; 85610; 85730; 86850; 86900; 86901; 93005; 93017; 96372; 99285; A9270; A9502; A9540; G0378; J1644; J2785